=== PATIENT | female | born 1965 | race Caucasian/White ===

== ENCOUNTER 2018-02-27 15:36 | Emergency (ER) | payer MEDICAID ==
--- NOTE | 2018-02-27 17:32 | RAD ---
HISTORY: Left leg swelling COMPARISONS: None relevant TECHNIQUE: Multiple transverse and longitudinal ultrasound images were obtained of the left lower extremity from the level of the common femoral vein inferiorly through to the infrapopliteal veins using grayscale, color Doppler, and spectral Doppler imaging with and without compression and with augmentation. Comparison images were obtained of the contralateral common femoral vein. FINDINGS: VEINS: The venous system of the left lower extremity is compressible throughout its course, with normal flow on color Doppler imaging and normal response to augmentation on spectral Doppler imaging. SOFT TISSUES: There is subcutaneous edema along the calf. OTHER FINDINGS: None. IMPRESSION: NO LEFT LOWER EXTREMITY DEEP VEIN THROMBOSIS
--- NOTE | 2018-02-27 18:07 | ED ---
Lower Extremity - HPI Summary HPI Summary: Pt. is a 52 y.o female who presents to the ER for pain and swelling to left lower leg x several days. Pt. does not recall any specific injury or fall. Pt. notes she works at [employer] and stands on her feet for long periods of time. She notes swelling is better in the a.m and progressively gets worse with standing. She denies CP or SOB. No past medical hx. Symptoms are mild -moderate in severity. - History of Current Complaint Chief Complaint: EDExtremityLower Stated Complaint: SWELLING IN THE LEFT LEG Time Seen by Provider: 02/27/18 16:24 Hx Obtained From: Patient Pain Intensity: 5 - Allergies/Home Medications Allergies/Adverse Reactions: Allergies Allergy/AdvReac Type Severity Reaction Status Date / Time azithromycin [From Zithromax] Allergy Unknown Verified 02/03/18 12:50 Reaction Details latex Allergy Unknown Verified 02/03/18 12:50 Reaction Details PMH/Surg Hx/FS Hx/Imm Hx Previously Healthy: Yes Endocrine/Hematology History: Denies: Hx Diabetes Cardiovascular History: Denies: Hx Congestive Heart Failure, Hx Hypertension Respiratory History: Reports: Other Respiratory Problems/Disorders - HX OF PNEUMONIA History: Denies: Hx Dialysis, Hx Renal Disease Musculoskeletal History: Reports: Hx Arthritis - knees, hands Sensory History: Reports: Hx Contacts or Glasses Opthamlomology History: Reports: Hx Contacts or Glasses - Cancer History Hx Chemotherapy: No Hx Radiation Therapy: No - Surgical History Surgery Procedure, Year, and Place: RIGHT BREAST LUMPECTOMY - Immunization History Immunizations Up to Date: Yes Infectious Disease History: No Infectious Disease History: Denies: Traveled Outside the [place] in Last 30 Days - Social History Occupation: Employed Full-time Lives: With Family Alcohol Use: Daily Alcohol Amount: a day Substance Use Type: Reports: None Hx Tobacco Use: Yes Smoking Status (MU): Heavy Every Day Tobacco Smoker Type: Cigarettes Amount Used/How Often: 3/4 to 1 pack a day Review of Systems Constitutional: Negative Negative: Fever, Chills Cardiovascular: Negative Negative: Chest Pain Respiratory: Negative Negative: Shortness Of Breath Positive: Other - Swelling and pain to left lower leg Skin: Negative Negative: Weakness, Paresthesia, Numbness All Other Systems Reviewed And Are Negative: Yes Physical Exam Triage Information Reviewed: Yes Vital Signs On Initial Exam: Initial Vitals Temp Pulse Resp BP Pulse Ox 98 F 109 18 177/86 99 02/27/18 16:19 02/27/18 16:19 02/27/18 16:19 02/27/18 16:19 02/27/18 16:19 Vital Signs Reviewed: Yes Appearance: Positive: Well-Appearing - Pt. sitting up in bed in NAD., Well- Nourished Skin: Positive: Warm, Dry Head/Face: Positive: Normal Head/Face Inspection Eyes: Positive: Normal Neck: Positive: Supple Musculoskeletal: Positive: Other - Mild edema noted diffusely to the left lower leg just below the knee to the ankle. Good palpable pedal pulse. Mild calf tenderness. Full ROM of knee. No wounds or erythema. Neurological: Positive: Normal, CN Intact II-III Diagnostics - Vital Signs Vital Signs Temp Pulse Resp BP Pulse Ox 02/27/18 16:19 98 F 109 18 177/86 99 - Laboratory Lab Statement: Any lab studies that have been ordered have been reviewed, and results considered in the medical decision making process. Lower Extremity Course/Dx - Course Course Of Treatment: Pt. presenting for unilateral leg edema. She is afebrile with stable vital signs. Venous doppler is negative for DVT, per radiology. No signs of infection on exam. Results discussed with pt. Recommend ice and elevation. To avoid standing for long periods of time. Close f.u with PCP if sxs continue. Advised pt. she may need repeat u/s if sxs persist. Can take tylenol or motrin for pain as directed. Work excuse given. Pt. understands and agrees with plan. - Diagnoses Differential Diagnosis/HQI/PQRI: Positive: Arthritis, Cellulitis, Contusion, DVT , Gout, Infection, Sprain, Strain, Tendonitis Provider Diagnoses: Leg edema, left Discharge - Sign-Out/Discharge Documenting (check all that apply): Discharge/Admit/Transfer - Discharge Plan Condition: Good Disposition: HOME Patient Education Materials: Leg Edema (ED) Forms: *Work Release Referrals: Armani Nicolas MD [Primary Care Provider] - Additional Instructions: Call PCP tomorrow for an appointment You may need ultrasound repeated in one week Elevate legs and avoid standing for long periods of time Return to ER for increased pain, swelling, or if concerned - Billing Disposition and Condition Condition: GOOD Disposition: HOME
[2018-02-27 18:26] VITALS: BP 185/98
== END 2018-02-27 18:26 | disposition home or self-care (01) ==
LOC: ED 15:36
DX: R60.0 Localized edema (principal); F17.210 Nicotine dependence, cigarettes, uncomplicated; Z88.3 Allergy status to other anti-infective agents
CPT/HCPCS: 99282

== ENCOUNTER 2021-05-07 18:21 | Inpatient (IN) ==
[2021-05-07 19:49] LABS: ABS Lymphocytes 1.6 10^3/ul (1.0-4.8); ABS Monocytes 0.9 10^3/ul (0-0.8); ABS Neutrophils 5.3 10^3/ul (1.5-7.7); Eosinophil % 0.4 %; Hematocrit 39 % (35-47); Hemoglobin 13.5 g/dL (12.0-16.0); Lymphocyte % 19.7 %; Mean Corpuscular HGB Conc 35 g/dL (31-36); Mean Corpuscular Hemoglobin 35 pg (27-31); Mean Corpuscular Volume 100 fL (80-97); Mean Platelet Volume 8.1 fL (7.4-10.4); Platelet Count 246 10^3/uL (150-450); Red Cell Distribution Width 13 % (10-15); White Blood Count 7.9 10^3/uL (3.5-10.8)
[2021-05-07 20:19] LABS: Albumin 3.4 g/dL (3.2-5.2); Calcium 9.3 mg/dL (8.6-10.3); Total Bilirubin 0.4 mg/dL (0.2-1.0)
[2021-05-07 20:25] LABS: Albumin/Globulin Ratio 1.3 (1-3); C Reactive Protein 73.4 mg/L (<8.01); EGFR Non-African American 83.5 (>60); Globulin 2.7 g/dL (2-4); Total Protein 6.1 g/dL (6.4-8.9)
[2021-05-07] MEDS ORDERED: NS 0.9% 1000 ml BAG 1,000 ML IV ONE (20:29)
[2021-05-07 20:34] LABS: Potassium 2.7 mmol/L (3.5-5.0)
[2021-05-07] MEDS ORDERED: Potassium Chlor 20 meq TAB.ER PO ONE (20:39)
[2021-05-07] MEDS: KCL 10 MEQ/50 ML IVPREMIX 10 MEQ/50 ML BAG IV SCH ×2 (20:50→23:15)
[2021-05-07 21:06] LABS: Magnesium 1.4 mg/dL (1.9-2.7)
[2021-05-07 21:07] LABS: Urine Appearance Cloudy; Urine Bilirubin Negative (Negative); Urine Blood Negative (Negative); Urine Color Yellow; Urine Glucose Negative (Negative); Urine Ketones Negative (Negative); Urine Nitrite Negative (Negative); Urine Protein Negative (Negative); Urine Specific Gravity 1.005 (1.002-1.030); Urine Urobilinogen Negative (Negative)
[2021-05-07] MEDS ORDERED: Magnesium Sulfate 2 gm BAG 2 GM/50 ML BAG IVPB ONE (21:16)
[2021-05-07 21:24] LABS: Troponin I 0.01 ng/mL (<0.03)
[2021-05-07 21:38] LABS: TSH Ultra Thyroid Stim Horm 1.08 mcIU/mL (0.34-5.60)
[2021-05-08] MEDS ORDERED: Iohexol 300 (CONTRAST) 10 ML SDV IV ONE (00:04)
[2021-05-08] MEDS ORDERED: Potassium Chlor 20 meq TAB.ER PO ONE ×2 (02:10→07:42)
[2021-05-08] MEDS ORDERED: Magnesium Sulfate IV 3 GM in NS 0.9% 100 ml BAG 100 ML IVPB ONE (02:11)
[2021-05-08] MEDS ORDERED: Albuterol HFA INHALER 8 gm MDI INH PRN (04:04)
[2021-05-08] MEDS ORDERED: Lactated Ringers 1000 ml BAG 1,000 ML IV SCH (05:00)
[2021-05-08] MEDS ORDERED: Azithromycin 500 mg/250 ml NS 500 MG/250 ML BAG IVPB ONE (05:23)
[2021-05-08] MEDS ORDERED: cefTRIAXone 1 gm/50 mL NS BAG 1 GM/50 ML BAG IVPB SCH (06:00)
[2021-05-08] MEDS: Enoxaparin 40 MG/0.4 ML SYR SUBCUT SCH (06:08)
[2021-05-08] MEDS: Ondansetron 4 mg VIAL 2 MG/ML 2 ml VIAL IV SCH ×3 (06:09→21:31)
[2021-05-08 06:59] LABS: ABS Eosinophils 0.1 10^3/ul (0-0.6); ABS Lymphocytes 1.6 10^3/ul (1.0-4.8); ABS Monocytes 0.8 10^3/ul (0-0.8); ABS Neutrophils 4.5 10^3/ul (1.5-7.7); Eosinophil % 1.6 %; Hematocrit 35 % (35-47); Hemoglobin 12.5 g/dL (12.0-16.0); Lymphocyte % 22.3 %; Mean Corpuscular HGB Conc 35 g/dL (31-36); Mean Corpuscular Hemoglobin 36 pg (27-31); Mean Corpuscular Volume 100 fL (80-97); Mean Platelet Volume 8.3 fL (7.4-10.4); Platelet Count 251 10^3/uL (150-450); Red Blood Count 3.51 10^6 /uL (3.70-4.87); Red Cell Distribution Width 13 % (10-15)
[2021-05-08 07:08] LABS: INR 0.96 (0.86-1.15)
[2021-05-08 07:13] LABS: C Reactive Protein 66.41 mg/L (<8.01); Calcium 8.7 mg/dL (8.6-10.3); EGFR African American 117.9 (>60); EGFR Non-African American 97.4 (>60); Potassium 3.1 mmol/L (3.5-5.0)
[2021-05-08 08:33] LABS: Magnesium 3.1 mg/dL (1.9-2.7)
[2021-05-08 10:34] LABS: Hepatitis B Surface Antigen Nonreactive (Nonreactive)
[2021-05-08 10:44] LABS: HIV 4th Generation Nonreactive (Nonreactive)
[2021-05-08 10:51] LABS: Hepatitis B Surface Ab Not Immune (Immune); Hepatitis C Antibody Negative (Negative)
[2021-05-08] MEDS ORDERED: Nicotine PATCH 7 MG/24 HR PATCH TRANSDERM SCH (14:00)
[2021-05-08] MEDS ORDERED: Nicotine GUM 2MG FRUIT FLAVOR PO PRN (14:51)
[2021-05-09] MEDS: Ondansetron 4 mg VIAL 2 MG/ML 2 ml VIAL IV SCH ×2 (05:26→12:18)
[2021-05-09 07:16] LABS: Anion Gap 8 mmol/L (2-11); Blood Urea Nitrogen 6 mg/dL (6-24); CO2 Carbon Dioxide 24 mmol/L (22-32); Calcium 8.6 mg/dL (8.6-10.3); Chloride 105 mmol/L (101-111); EGFR African American 143.9 (>60); EGFR Non-African American 118.9 (>60); Glucose 92 mg/dL (70-100); Magnesium 1.6 mg/dL (1.9-2.7); Potassium 3.4 mmol/L (3.5-5.0); Sodium 137 mmol/L (135-145)
[2021-05-09] MEDS ORDERED: Potassium Chlor 20 meq TAB.ER PO ONE (07:50)
[2021-05-09] MEDS ORDERED: Magnesium Sulfate 2 gm BAG 2 GM/50 ML BAG IVPB ONE (07:50)
[2021-05-09] MEDS: Enoxaparin 40 MG/0.4 ML SYR SUBCUT SCH (07:58)
[2021-05-09 09:47] LABS: Folate 9.23 ng/mL (5.90-24.80)
[2021-05-09 09:48] LABS: Vitamin B12 > 1450 pg/mL (180-914)
[2021-05-09 11:20] VITALS: BP 107/59
[2021-05-10 22:06] LABS: Anaplasma phagocytophilum Negative (Negative); B. miyamotoi PCR, B Negative (Negative); Babesia divergens/MO-1 Negative (Negative); Babesia ducani Negative (Negative); Ehrlichia chaffeensis Negative (Negative); Ehrlichia ewingii/canis Negative (Negative); Ehrlichia muris eauclairensis Negative (Negative)
[2021-05-10 23:40] LABS: IgG Immunoblot Negative (Negative); IgM Immunoblot Negative (Negative)
== END 2021-05-09 15:11 | disposition home or self-care (01) | DRG 861 ==
LOC: ED 18:21 → SSU 05-08 02:06
PROVIDERS: ADMIT Internal Medicine; ATTEND Student in an Organized Health Care Education/Training Program

== ENCOUNTER 2023-09-24 11:36 | Inpatient (IN) ==
[2023-09-24] MEDS ORDERED: Lactated Ringers 1000 ml BAG 1,000 ML IV ONE (18:08)
[2023-09-24 18:49] LABS: ABS Basophils 0.2 10^3/uL (0.0-0.1); ABS Eosinophils 0.1 10^3/uL (0.0-0.5); ABS Lymphocytes 1.3 10^3/uL (1.0-4.8); ABS Monocytes 0.8 10^3/uL (0.0-0.9); ABS Neutrophils 4.9 10^3/uL (1.5-7.6); ABS Nucleated RBC 0.01 10^3/ul; Eosinophil % 0.9 %; Hematocrit 38.3 % (35-45); Hemoglobin 12.8 g/dL (11.5-14.3); Lymphocyte % 17.9 %; Mean Corpuscular Hgb Conc 33.5 g/dL (31-36); Mean Corpuscular Volume 104.7 fL (80-97); Mean Platelet Volume 8.2 fL (7.5-11.2); Nucleated Red Blood Cells % 0.1 %/100WBC (0.0-0.8); Platelet Count 242 10^3/uL (150-450); Red Blood Count 3.66 10^6/uL (3.63-4.92); Red Cell Distribution Width 14.6 % (12-17); White Blood Count 7.3 10^3/uL (3.8-11.8)
[2023-09-24 19:18] LABS: Albumin 3.7 g/dL (3.2-5.2); Albumin/Globulin Ratio 1.4 (1-3); C Reactive Protein 30.31 mg/L (<8.01); Calcium 8.5 mg/dL (8.6-10.3); Creatinine, Serum 0.93 mg/dL (0.51-0.95); Globulin 2.6 g/dL (2-4); Magnesium 1.6 mg/dL (1.9-2.7); Phosphorus 3.1 mg/dL (2.5-5.0); Potassium 2.8 mmol/L (3.5-5.0); Total Bilirubin 0.7 mg/dL (0.2-1.0); Total Protein 6.3 g/dL (6.4-8.9); eGFR CKD-EPI 70.4 (>60)
[2023-09-24 19:51] LABS: Venous Bicarbonate HCO3 14.9 mmol/L (24-28)
[2023-09-24] MEDS: KCL 20 MEQ/100 ML IVPREMIX 20 MEQ/100 ML BAG IV SCH ×2 (20:09→22:28)
[2023-09-24 20:16] LABS: High Sensitivity Troponin 1 Hr 13 pg/mL (<15)
[2023-09-24] MEDS ORDERED: D5NS 0.9% 1000 ml BAG 1,000 ML IV ONE (20:29)
[2023-09-24] MEDS ORDERED: Magnesium Sulfate 2 gm BAG 2 GM/50 ML BAG IVPB ONE (20:30)
[2023-09-24] MEDS ORDERED: Iohexol 300 (CONTRAST) 10 ML SDV IV ONE (20:59)
[2023-09-24] MEDS ORDERED: Ondansetron 4 mg VIAL 2 MG/ML 2 ml VIAL IV ONE (21:49)
[2023-09-24] MEDS ORDERED: metroNIDAZOLE IV 500 MG/100ML 500 MG/100 ML BAG IVPB ONE (22:26)
[2023-09-25 04:26] LABS: Sodium 130 mmol/L (135-145)
[2023-09-25 04:27] LABS: ALT 47 U/L (7-52); Albumin/Globulin Ratio 1.4 (1-3); Alkaline Phosphatase 97 U/L (35-149); Anion Gap 20 mmol/L (2-16); Blood Urea Nitrogen 7 mg/dL (6-24); CO2 Carbon Dioxide 15 mmol/L (22-32); Calcium 7.6 mg/dL (8.6-10.3); Chloride 95 mmol/L (101-111); Creatinine, Serum 0.83 mg/dL (0.51-0.95); Globulin 2.2 g/dL (2-4); Glucose 121 mg/dL (70-100); Total Bilirubin 0.6 mg/dL (0.2-1.0); Total Protein 5.2 g/dL (6.4-8.9); eGFR CKD-EPI 80.7 (>60)
[2023-09-25 04:29] LABS: Creatinine, Serum 0.82 mg/dL (0.51-0.95); eGFR CKD-EPI 81.8 (>60)
[2023-09-25] MEDS ORDERED: Thiamine 100 MG/ML 2 ml VIAL (200 mg) IM ONE (05:02)
[2023-09-25] MEDS ORDERED: Potassium Chlor 20 meq TAB.ER PO ONE ×2 (05:04→13:43)
[2023-09-25 05:11] LABS: Albumin 2.8 g/dL (3.2-5.2); Albumin/Globulin Ratio 1.4 (1-3); Direct Bilirubin 0.1 mg/dL (0.03-0.18); Indirect Bilirubin 0.5 mg/dL (0.3-1.0); Total Bilirubin 0.6 mg/dL (0.2-1.0); Total Protein 4.8 g/dL (6.4-8.9)
[2023-09-25] MEDS ORDERED: Lorazepam PYXIS KEY PRN (05:11)
[2023-09-25] MEDS: cefTRIAXone 1 gm/50 mL D5W 1 GM/50 ML BAG IV SCH (05:59)
[2023-09-25] MEDS ORDERED: LORazepam 2 mg VIAL 1 ml IV PUSH SCH (06:00)
[2023-09-25 10:36] LABS: INR 0.92 (0.83-1.13)
[2023-09-25] MEDS: Enoxaparin 40 MG/0.4 ML SYR SUBCUT SCH (10:41)
[2023-09-25] MEDS: Multivitamins/Minerals TAB PO SCH (10:41)
[2023-09-25 10:42] LABS: Potassium Redraw 3.2 mmol/L (3.5-5.0)
[2023-09-25] MEDS: metroNIDAZOLE IV 500 MG/100ML 500 MG/100 ML BAG IVPB SCH ×2 (10:42→16:59)
[2023-09-25 10:47] LABS: Calcium 7.4 mg/dL (8.6-10.3); Creatinine, Serum 0.82 mg/dL (0.51-0.95); Magnesium 1.8 mg/dL (1.9-2.7); Potassium 3.2 mmol/L (3.5-5.0); eGFR CKD-EPI 81.8 (>60)
[2023-09-25] MEDS ORDERED: Magnesium Sulfate 2 gm BAG 2 GM/50 ML BAG IVPB ONE (13:43)
[2023-09-25] MEDS: Potassium & Sodium Phos 250 mg = 1 PACKET PO SCH ×2 (16:59→21:19)
[2023-09-25] MEDS ORDERED: Potassium Phosphate IV 15 MMOL in NS 0.9% 250 ml 250 ML IVPB ONE (17:00)
[2023-09-26] MEDS: metroNIDAZOLE IV 500 MG/100ML 500 MG/100 ML BAG IVPB SCH ×3 (01:03→17:40)
[2023-09-26] MEDS: cefTRIAXone 1 gm/50 mL D5W 1 GM/50 ML BAG IV SCH (05:17)
[2023-09-26 05:43] LABS: Urine Appearance Clear; Urine Bilirubin Negative (Negative); Urine Blood Negative (Negative); Urine Color Yellow; Urine Glucose Negative (Negative); Urine Ketones Trace (Negative); Urine Nitrite Negative (Negative); Urine Protein 1+(30 mg/dL) (Negative); Urine Specific Gravity 1.012 (1.002-1.030); Urine Urobilinogen Negative (Negative)
[2023-09-26 05:45] LABS: ABS Eosinophils 0.1 10^3/uL (0.0-0.5); ABS Lymphocytes 0.8 10^3/uL (1.0-4.8); ABS Monocytes 0.6 10^3/uL (0.0-0.9); ABS Neutrophils 2.7 10^3/uL (1.5-7.6); Eosinophil % 2.9 %; Hematocrit 30.8 % (35-45); Hemoglobin 10.6 g/dL (11.5-14.3); Mean Corpuscular Hemoglobin 35.5 pg (27-33); Mean Corpuscular Hgb Conc 34.4 g/dL (31-36); Mean Corpuscular Volume 103.3 fL (80-97); Mean Platelet Volume 8.3 fL (7.5-11.2); Platelet Count 146 10^3/uL (150-450); Red Blood Count 2.98 10^6/uL (3.63-4.92); Red Cell Distribution Width 14.6 % (12-17); White Blood Count 4.2 10^3/uL (3.8-11.8)
[2023-09-26 06:07] LABS: Creatinine, Serum 0.57 mg/dL (0.51-0.95); Magnesium 1.8 mg/dL (1.9-2.7); Phosphorus 1.6 mg/dL (2.5-5.0); Potassium 2.7 mmol/L (3.5-5.0)
[2023-09-26] MEDS ORDERED: Potassium Chlor 20 meq TAB.ER PO ONE (06:11)
[2023-09-26] MEDS ORDERED: Magnesium Sulfate 2 gm BAG 2 GM/50 ML BAG IVPB ONE (06:12)
[2023-09-26 06:17] LABS: Urine Bacteria Absent (Absent); Urine Red Blood Cell Absent (Absent); Urine Squamous Epithelial Cell Present (Absent); Urine White Blood Cell 1+(6-10/hpf) (Absent)
[2023-09-26] MEDS ORDERED: Potassium Chlor 20 meq TAB.ER PO SCH (07:00)
[2023-09-26] MEDS ORDERED: Potassium Chloride LIQUID 20 MEQ/15 ML LIQUID PO ONE (07:43)
[2023-09-26] MEDS: Potassium & Sodium Phos 250 mg = 1 PACKET PO SCH ×4 (08:13→20:47)
[2023-09-26] MEDS: Multivitamins/Minerals TAB PO SCH (08:15)
[2023-09-26] MEDS: Enoxaparin 40 MG/0.4 ML SYR SUBCUT SCH (08:18)
[2023-09-26] MEDS ORDERED: Potassium Phosphate IV 15 MMOL in NS 0.9% 250 ml 250 ML IVPB ONE ×3 (09:00→18:00)
[2023-09-26 14:43] LABS: Calcium 6.8 mg/dL (8.6-10.3); Creatinine, Serum 0.58 mg/dL (0.51-0.95); Magnesium 2.1 mg/dL (1.9-2.7); Phosphorus 1.9 mg/dL (2.5-5.0); Potassium 3.1 mmol/L (3.5-5.0); eGFR CKD-EPI 103.5 (>60)
[2023-09-26] MEDS: Ondansetron 4 mg VIAL 2 MG/ML 2 ml VIAL IV PRN (18:05)
[2023-09-26] MEDS: KCL 20 MEQ/100 ML IVPREMIX 20 MEQ/100 ML BAG IV SCH ×2 (18:08→22:45)
[2023-09-26 20:44] LABS: Albumin 2.7 g/dL (3.2-5.2); Albumin/Globulin Ratio 1.4 (1-3); Calcium 6.9 mg/dL (8.6-10.3); Creatinine, Serum 0.54 mg/dL (0.51-0.95); Globulin 1.9 g/dL (2-4); Magnesium 1.9 mg/dL (1.9-2.7); Phosphorus 2.9 mg/dL (2.5-5.0); Potassium 4.1 mmol/L (3.5-5.0); Total Bilirubin 0.5 mg/dL (0.2-1.0); Total Protein 4.6 g/dL (6.4-8.9); eGFR CKD-EPI 105.3 (>60)
[2023-09-27] MEDS: metroNIDAZOLE IV 500 MG/100ML 500 MG/100 ML BAG IVPB SCH ×3 (01:37→16:27)
[2023-09-27] MEDS: cefTRIAXone 1 gm/50 mL D5W 1 GM/50 ML BAG IV SCH (05:17)
[2023-09-27] MEDS: Enoxaparin 40 MG/0.4 ML SYR SUBCUT SCH (08:28)
[2023-09-27] MEDS: Multivitamins/Minerals TAB PO SCH (08:28)
[2023-09-27] MEDS: Ondansetron 4 mg VIAL 2 MG/ML 2 ml VIAL IV PRN (08:33)
[2023-09-27 09:01] LABS: Hematocrit 29.1 % (35-45); Hemoglobin 9.9 g/dL (11.5-14.3); Mean Corpuscular Hemoglobin 35.9 pg (27-33); Mean Corpuscular Hgb Conc 34.1 g/dL (31-36); Mean Corpuscular Volume 105.2 fL (80-97); Mean Platelet Volume 8.8 fL (7.5-11.2); Platelet Count 143 10^3/uL (150-450); Red Blood Count 2.77 10^6/uL (3.63-4.92); Red Cell Distribution Width 14.6 % (12-17)
[2023-09-27 09:04] LABS: Albumin 2.7 g/dL (3.2-5.2); Albumin/Globulin Ratio 1.4 (1-3); Calcium 6.8 mg/dL (8.6-10.3); Creatinine, Serum 0.55 mg/dL (0.51-0.95); Globulin 1.9 g/dL (2-4); Magnesium 1.7 mg/dL (1.9-2.7); Phosphorus 2.6 mg/dL (2.5-5.0); Potassium 3.2 mmol/L (3.5-5.0); Total Bilirubin 0.5 mg/dL (0.2-1.0); Total Protein 4.6 g/dL (6.4-8.9); eGFR CKD-EPI 104.9 (>60)
[2023-09-27] MEDS ORDERED: Magnesium Sulfate 2 gm BAG 2 GM/50 ML BAG IVPB ONE (09:49)
[2023-09-27] MEDS: Potassium & Sodium Phos 250 mg = 1 PACKET PO SCH ×4 (11:29→20:26)
[2023-09-27] MEDS ORDERED: Magnesium Sulfate IV 1GM/100ML 1 GM/100 ML BAG IV ONE (11:49)
[2023-09-27] MEDS ORDERED: Calcium (OSCAL) 500 mg TAB PO SCH (13:00)
[2023-09-27] MEDS: KCL 20 MEQ/100 ML IVPREMIX 20 MEQ/100 ML BAG IV SCH ×2 (13:25→15:57)
[2023-09-27 14:49] LABS: Creatinine, Serum 0.58 mg/dL (0.51-0.95); Phosphorus 2.2 mg/dL (2.5-5.0); Potassium 3.3 mmol/L (3.5-5.0); eGFR CKD-EPI 103.5 (>60)
[2023-09-27] MEDS ORDERED: Potassium Phosphate IV 15 MMOL in NS 0.9% 250 ml 250 ML IVPB ONE (16:30)
[2023-09-27 19:03] LABS: Calcium 6.6 mg/dL (8.6-10.3); Creatinine, Serum 0.52 mg/dL (0.51-0.95); Magnesium 2.4 mg/dL (1.9-2.7); Potassium 4.1 mmol/L (3.5-5.0); eGFR CKD-EPI 106.3 (>60)
[2023-09-28] MEDS: metroNIDAZOLE IV 500 MG/100ML 500 MG/100 ML BAG IVPB SCH ×2 (01:16→09:32)
[2023-09-28] MEDS: cefTRIAXone 1 gm/50 mL D5W 1 GM/50 ML BAG IV SCH (05:37)
[2023-09-28 06:04] LABS: ABS Eosinophils 0.1 10^3/uL (0.0-0.5); ABS Lymphocytes 0.9 10^3/uL (1.0-4.8); ABS Monocytes 0.5 10^3/uL (0.0-0.9); ABS Neutrophils 2.2 10^3/uL (1.5-7.6); Eosinophil % 2.3 %; Hematocrit 29.4 % (35-45); Lymphocyte % 24.6 %; Mean Corpuscular Hemoglobin 35.6 pg (27-33); Mean Corpuscular Volume 104.6 fL (80-97); Platelet Count 158 10^3/uL (150-450); Red Blood Count 2.81 10^6/uL (3.63-4.92); Red Cell Distribution Width 14.5 % (12-17); White Blood Count 3.8 10^3/uL (3.8-11.8)
[2023-09-28 06:18] LABS: Creatinine, Serum 0.54 mg/dL (0.51-0.95); Potassium 3.6 mmol/L (3.5-5.0); eGFR CKD-EPI 105.3 (>60)
[2023-09-28] MEDS: Enoxaparin 40 MG/0.4 ML SYR SUBCUT SCH (09:20)
[2023-09-28] MEDS: Multivitamins/Minerals TAB PO SCH (09:21)
[2023-09-28] MEDS: Potassium & Sodium Phos 250 mg = 1 PACKET PO SCH ×4 (09:21→22:23)
[2023-09-28] MEDS ORDERED: Lactated Ringers 1000 ml BAG 1,000 ML IV ONE (15:14)
[2023-09-29 05:59] LABS: ABS Eosinophils 0.1 10^3/uL (0.0-0.5); ABS Lymphocytes 0.9 10^3/uL (1.0-4.8); ABS Monocytes 0.5 10^3/uL (0.0-0.9); ABS Neutrophils 2.1 10^3/uL (1.5-7.6); Eosinophil % 3.2 %; Hematocrit 30.5 % (35-45); Hemoglobin 10.3 g/dL (11.5-14.3); Mean Corpuscular Hgb Conc 33.8 g/dL (31-36); Mean Corpuscular Volume 106.4 fL (80-97); Mean Platelet Volume 9.6 fL (7.5-11.2); Nucleated Red Blood Cells % 0.1 %/100WBC (0.0-0.8); Platelet Count 200 10^3/uL (150-450); Red Blood Count 2.86 10^6/uL (3.63-4.92); White Blood Count 3.6 10^3/uL (3.8-11.8)
[2023-09-29 06:12] LABS: Calcium 7.6 mg/dL (8.6-10.3); Creatinine, Serum 0.52 mg/dL (0.51-0.95); Magnesium 1.5 mg/dL (1.9-2.7); Potassium 3.5 mmol/L (3.5-5.0); eGFR CKD-EPI 106.3 (>60)
[2023-09-29] MEDS: cefTRIAXone 1 gm/50 mL D5W 1 GM/50 ML BAG IV SCH (06:37)
[2023-09-29] MEDS ORDERED: Magnesium Sulf 4 GM/100 ML IV 4,000 MG/100 ML BAG IVPB ONE (07:20)
[2023-09-29] MEDS: Enoxaparin 40 MG/0.4 ML SYR SUBCUT SCH (08:56)
[2023-09-29] MEDS: Multivitamins/Minerals TAB PO SCH (08:56)
[2023-09-29] MEDS: Potassium & Sodium Phos 250 mg = 1 PACKET PO SCH ×4 (09:28→20:30)
[2023-09-30] MEDS: cefTRIAXone 1 gm/50 mL D5W 1 GM/50 ML BAG IV SCH (04:53)
[2023-09-30 05:58] LABS: ABS Eosinophils 0.2 10^3/uL (0.0-0.5); ABS Monocytes 0.7 10^3/uL (0.0-0.9); ABS Neutrophils 2.8 10^3/uL (1.5-7.6); Eosinophil % 3.3 %; Hematocrit 28.2 % (35-45); Hemoglobin 9.6 g/dL (11.5-14.3); Lymphocyte % 21.2 %; Mean Corpuscular Hemoglobin 35.8 pg (27-33); Mean Corpuscular Volume 105.4 fL (80-97); Nucleated Red Blood Cells % 0.1 %/100WBC (0.0-0.8); Platelet Count 242 10^3/uL (150-450); Red Blood Count 2.68 10^6/uL (3.63-4.92); Red Cell Distribution Width 14.5 % (12-17); White Blood Count 4.6 10^3/uL (3.8-11.8)
[2023-09-30 06:11] LABS: Calcium 7.9 mg/dL (8.6-10.3); Creatinine, Serum 0.58 mg/dL (0.51-0.95); Magnesium 2.2 mg/dL (1.9-2.7); Phosphorus 4.5 mg/dL (2.5-5.0); Potassium 3.3 mmol/L (3.5-5.0); eGFR CKD-EPI 103.5 (>60)
[2023-09-30] MEDS ORDERED: KCL 20 MEQ/100 ML IVPREMIX 20 MEQ/100 ML BAG IV ONE (07:41)
[2023-09-30] MEDS ORDERED: Potassium Chlor 20 meq TAB.ER PO ONE (07:42)
[2023-09-30] MEDS: Enoxaparin 40 MG/0.4 ML SYR SUBCUT SCH (08:15)
[2023-09-30] MEDS: Potassium & Sodium Phos 250 mg = 1 PACKET PO SCH ×3 (08:16→17:19)
[2023-09-30] MEDS: Multivitamins/Minerals TAB PO SCH (08:16)
[2023-09-30 14:02] LABS: Folate 19.96 ng/mL (5.90-24.80)
[2023-10-01] MEDS: cefTRIAXone 1 gm/50 mL D5W 1 GM/50 ML BAG IV SCH (05:13)
[2023-10-01 06:39] LABS: ABS Basophils 0.1 10^3/uL (0.0-0.1); ABS Eosinophils 0.2 10^3/uL (0.0-0.5); ABS Lymphocytes 1.1 10^3/uL (1.0-4.8); ABS Monocytes 0.9 10^3/uL (0.0-0.9); Albumin 2.4 g/dL (3.2-5.2); Calcium 7.6 mg/dL (8.6-10.3); Creatinine, Serum 0.5 mg/dL (0.51-0.95); Globulin 2.4 g/dL (2-4); Hematocrit 28.3 % (35-45); Hemoglobin 9.6 g/dL (11.5-14.3); Magnesium 1.3 mg/dL (1.9-2.7); Mean Corpuscular Hemoglobin 35.6 pg (27-33); Mean Corpuscular Hgb Conc 33.9 g/dL (31-36); Phosphorus 4.5 mg/dL (2.5-5.0); Platelet Count 293 10^3/uL (150-450); Red Blood Count 2.69 10^6/uL (3.63-4.92); Red Cell Distribution Width 14.9 % (12-17); Total Bilirubin 0.3 mg/dL (0.2-1.0); Total Protein 4.8 g/dL (6.4-8.9); White Blood Count 5.2 10^3/uL (3.8-11.8); eGFR CKD-EPI 107.3 (>60)
[2023-10-01] MEDS ORDERED: Potassium Chlor 20 meq TAB.ER PO ONE ×2 (07:26→10:01)
[2023-10-01] MEDS ORDERED: KCL 20 MEQ/100 ML IVPREMIX 20 MEQ/100 ML BAG IV ONE (07:27)
[2023-10-01] MEDS: Multivitamins/Minerals TAB PO SCH (07:53)
[2023-10-01] MEDS: Enoxaparin 40 MG/0.4 ML SYR SUBCUT SCH (07:53)
[2023-10-01] MEDS ORDERED: Sulfur Hexaflouride MICROSPHR 25 MG VIAL ONE (09:18)
[2023-10-01 13:42] LABS: Calcium 7.9 mg/dL (8.6-10.3); Creatinine, Serum 0.53 mg/dL (0.51-0.95); Magnesium 1.4 mg/dL (1.9-2.7); Potassium 3.6 mmol/L (3.5-5.0); eGFR CKD-EPI 105.8 (>60)
[2023-10-01] MEDS ORDERED: Calcium Carb (TUMS) 500 mg CHEW TAB PO PRN (15:15)
[2023-10-01] MEDS ORDERED: Famotidine IV 10 MG/ML 2 ml VIAL (20 mg) IV SLOW PU ONE (16:13)
[2023-10-01] MEDS ORDERED: Famotidine IV 10 MG/ML 2 ml VIAL (20 mg) ONE (16:26)
[2023-10-01 21:27] LABS: Helicobacter pylori Result Not Detected; Specimen Source STOOL
[2023-10-02] MEDS ORDERED: cefTRIAXone 1 GM ONETIME (ADVAN) IVPB SCH (06:00)
[2023-10-02 07:24] LABS: Creatinine, Serum 0.52 mg/dL (0.51-0.95); Magnesium 1.3 mg/dL (1.9-2.7); Potassium 3.4 mmol/L (3.5-5.0); eGFR CKD-EPI 106.3 (>60)
[2023-10-02] MEDS ORDERED: Potassium Chlor 20 meq TAB.ER PO SCH (09:00)
[2023-10-02] MEDS: Enoxaparin 40 MG/0.4 ML SYR SUBCUT SCH (09:45)
[2023-10-02] MEDS: Multivitamins/Minerals TAB PO SCH (09:46)
[2023-10-02 14:04] VITALS: BP 95/60
== END 2023-10-02 14:37 | disposition home or self-care (01) | DRG 249 ==
LOC: ED 11:36 → EDHOLD 09-25 05:03 → SUATTDRO 09-25 05:03 → SSU 09-25 07:53
PROVIDERS: ADMIT Internal Medicine; ATTEND Student in an Organized Health Care Education/Training Program